=== PATIENT | male | born 1985 | race Two or more races ===

== ENCOUNTER 2019-04-27 05:36 | Emergency (ER) | payer BC ==
[~2019-04-27] VITALS: Ht 170.2 cm; Wt 59.6 kg
[2019-04-27] MEDS ORDERED: HYDROmorphone 1 MG/ML, 1ML VIAL ONE ×2 (06:13→06:52)
[2019-04-27] MEDS: HYDROmorphone 1 MG/ML, 1ML VIAL IVPush PRN ×2 (06:26→07:03)
[2019-04-27] MEDS ORDERED: METHOCARBAMOL 1,000 MG in DEXTROSE 5% 100 ML IV ONE (06:30)
[2019-04-27] MEDS ORDERED: SODIUM CHLORIDE FLUSH 10ML SYR IVF ONE (06:30)
[2019-04-27 06:31] LABS: BASOPHILS # (AUTO) 0.04 x10^3/uL (0-0.1); BASOPHILS % (AUTO) 0 % (0-1); EOSINOPHILS # (AUTO) 0.33 x10^3/uL (0-0.4); EOSINOPHILS % (AUTO) 3 % (1-7); LYMPHOCYTES # (AUTO) 2.21 x10^3/uL (1-3.4); LYMPHOCYTES % (AUTO) 18 % (22-44); MD NO; MEAN CORPUSCULAR HEMOGLOBIN 30.1 pg (27.5-34.5); MEAN CORPUSCULAR HGB CONC 33.2 g/dL (33.2-36.2); MEAN CORPUSCULAR VOLUME 90.5 fL (81-97); MONOCYTES # (AUTO) 0.49 x10^3/uL (0.2-0.8); MONOCYTES % (AUTO) 4 % (2-9); NEUTROPHILS # (AUTO) 9.18 x10^3/uL (1.8-6.8); NEUTROPHILS % (AUTO) 75 % (42-75); PLATELET COUNT 332 x10^3/uL (130-400); RED BLOOD COUNT 5.06 x10^6/uL (4.38-5.82); RED CELL DISTRIBUTION WIDTH 14.4 % (9.4-14.8)
[2019-04-27 06:32] LABS: HCT (SEDRATE) 45.8 % (39.2-51.8)
[2019-04-27 06:45] LABS: ANION GAP 5 mmol/L (5-15); CALCIUM 8.9 mg/dL (8.5-10.1); CHLORIDE 106 mmol/L (98-107)
[2019-04-27 06:46] LABS: CREATININE 1.16 mg/dL (0.7-1.3)
--- NOTE | 2019-04-27 06:50 | NUR ---
REPORT FROM BHAVNA RN WITH ASSESSMENT PATIENT ROLLING AROUND ON STRETCHER-REPORTS LOCAL UPPER LUMBAR PAIN REMAINS 9 DENIES BOWEL/BLADDER DEFICITS. DENIES MOTOR SENSORY DEFICITS WELL MEDICATED FOR PAIN PER EMAR TO MRI AT 0704 AM
--- NOTE | 2019-04-27 06:55 | NUR ---
PATIENT ASKED TO VOID FOR URINE SAMPLE. PATIENT REACTED WITH DISTRUSTFUL LOOK BUT SAID HE WOULD TRY. PATIENT UNABLE TO PRODUCE. PROVIDER MADE AWARE
--- NOTE | 2019-04-27 08:00 | NUR ---
PATIENT BACK FROM MRI. PER PATIENT SUCCESSFULLY COMPLETED EXAM. WITH RE-ASSESSMENT PATIENT REPORTS PAIN REMAINS 8/10, REMAIN WITH NO NEURO DEFICITS (UNCHANGED) VSS ON NIBP/POX PROVIDER MADE AWARE OF CONTINUED PAIN- TO ADMIN TORADOL IF MRI RESULT NON-SURGICAL
[2019-04-27] MEDS ORDERED: KETOROLAC 30 MG/1 ML ONE (08:03)
[2019-04-27] MEDS ORDERED: KETOROLAC 30 MG/1 ML IM ONE (08:30)
--- NOTE | 2019-04-27 08:30 | NUR ---
STILL UNABLE TO PRODUCE URINE FOR UDS POC REVIEWED W/ PROVIDER- TO MRI HIP/MEDICATE W/ TORODOL WITH FURTHER ASSESSMENT PATIENT REPORT HE ALREADY HAS HAD MRI OF HIP A [facility] DIRECTLY AFTER FALL MEDICATED W/ TORODOL IM WILL CONTINUE TO MONITOR
--- NOTE | 2019-04-27 09:19 | NUR ---
PAIN IMPROVED TO 2/10 AFTER TORADOL. PATIENT NOW SLEEPING COMFORTABLY NO NEURO CHANGES
--- NOTE | 2019-04-27 09:46 | NUR ---
UA COLLECTED TO MRI W/OUT FURTHER MEDICATION AFTER REVIEW W/ BULB INSPECTOR/PATIENT
[2019-04-27 09:53] LABS: MICROSCOPIC NOT IND
[2019-04-27] MEDS ORDERED: DIAZEPAM 5 MG/ML, 2ML IV PRN (10:00)
[2019-04-27 10:03] LABS: CULTURE INDICATED? NO
[2019-04-27 10:05] LABS: AMPHETAMINE SCREEN, URINE Negative (Negative); BARBITURATE SCREEN, URINE Negative (Negative); BENZODIAZEPINE SCREEN, URINE Negative (Negative); CANNABINOID SCREEN, URINE Positive (Negative); COCAINE SCREEN, URINE Positive (Negative); METHADONE SCREEN, URINE Negative (Negative); OPIATE SCREEN, URINE Positive (Negative)
--- NOTE | 2019-04-27 11:11 | NUR ---
WITH REASSESSMENT PATIENT REPORTS PAIN "STILL GELA MUCH BETTER. I CAN REST." PATIENT DEEP ASLEEP ON GURNEY NO NEURO CHANGES PROVIDER CONSIDERING DISPO TEST RESULTED VSS ON NIBP/POX
[2019-04-27 11:18] VITALS: BP 103/59
--- NOTE | 2019-04-27 11:45 | NUR ---
TRHOUGHPUT: ORDER/FACE SHEET FOR [facility] FAXED TO [facility].
--- NOTE | 2019-04-27 11:56 | NUR ---
THROUGHPUT: [facility] ETA ~1430.
--- NOTE | 2019-04-27 12:50 | NUR ---
ORTHOPRO AT BEDSIDE PATIENT PROVIDED WITH FOOD/WATER
== END 2019-04-27 13:22 | disposition home or self-care (01) ==
LOC: ED 08:07
DX: S32.028A Other fracture of second lumbar vertebra, initial encounter for closed fracture (principal); S32.19XA Other fracture of sacrum, initial encounter for closed fracture; W01.0XXA Fall on same level from slipping, tripping and stumbling without subsequent striking against object, initial encounter; Y93.89 Activity, other specified; Y92.89 Other specified places as the place of occurrence of the external cause; Y99.8 Other external cause status
CPT/HCPCS: 36415; 72158; 72195; 80048; 80307; 81003; 82040; 85025; 85651; 96365; 96372; 96375; 96376; 99284; J1170; J1885; J2800